=== PATIENT | male | born 1960 | race Caucasian/White ===

== ENCOUNTER 2020-02-24 09:31 | Emergency (ER) | payer MEDICAID, SELFPAY ==
[2020-02-24 09:37] VITALS: BP 140/90; PULSE 110; RESP 18; TEMP 36.3; O2SAT 95; BMI 34.9
--- NOTE | 2020-02-24 09:53 | ED_ITS ---
HPI - Skin/Abscess/Foreign Bdy General: Chief complaint: Skin/Abscess/Foreign Body Stated complaint: WOUND ON BOTTOM Time Seen by Provider: 02/24/20 09:39 History of Present Illness: HPI narrative: 59-year-old male history of perirectal abscess. Was seen at a local walk-in clinic this morning and referred to the ER. He first noticed this beginning 2 days ago. He states he has had this multiple times in the past and has had surgical drainage. Denies any fever. MD complaint: abscess/boil Onset (ago): day(s) (2) Tetanus up to date: yes Severity: moderate Quality: sharp and constant Pain Consistency: constant Relieving factors: rest Exacerbating factors: movement Associated symptoms: Deny arthralgias, chills, cough, fever(s), itching, myalgias, nausea, rigidity, short of breath or vomiting Treatments prior to arrival: none Review of Systems Const: Denies: fever(s) or chills ENMT: Denies: throat pain, ear or mastoid pain, nasal discharge or nasal congestion Card: Denies: chest pain, edema, dyspnea on exertion or orthopnea Resp: Denies: dyspnea, productive cough or non-productive cough GI: Denies: nausea or vomiting : Denies: flank pain, dysuria, urinary frequency or urinary urgency Skin/Breast: Denies: rash or pruritus Physical Exam Const: COMMON NORMALS: no acute distress GENERAL APPEARANCE: cooperative ORIENTATION/CONSCIOUSNESS: Yes awake, Yes oriented to person, Yes oriented to place and Yes oriented to time HENMT: COMMON NORMALS: normocephalic, atraumatic and hearing grossly normal bilaterally HEAD & SCALP: normocephalic and atraumatic Neck/C-Spine: COMMON NORMALS: no JVD Resp: COMMON NORMALS: normal respiratory effort, No retractions, No use of accessory muscles and clear to auscultation bilaterally AUSCULTATION: clear to auscultation bilaterally Cardio: COMMON NORMALS: no JVD, regular rate, regular rhythm and No murmurs present (Cardio) RATE: regular rate RHYTHM: regular rhythm GI: COMMON NORMALS: Soft to palpation and No hepatosplenomegaly present AUSCULTATION: Yes normoactive bowel sounds PALPATION: Yes Soft to palpation, No Tenderness to palpation present (GI), No Guarding due to palpation present (GI) and Yes No hepatosplenomegaly present OTHER: Palpable perirectal abscess at the 10 o'clock position. Incised with an 11 blade after local anesthesia with 1% lidocaine with epinephrine. Small amount of purulent drainage noted good this was cultured no significant drainage from the area. Extremity: COMMON NORMALS: normal to inspection, capillary refill normal, no clubbing, cyanosis or edema, no calf tenderness and no pedal edema Neuro: SENSORIUM/ORIENTATION: Yes oriented to person, Yes oriented to place and Yes oriented to time Procedures Abscess I/D Site: nigel-rectal Side (if applicable): left (10 to 11 o'clock position) Local Anesthetic: lidocaine 1% and with epi Amount of anesthesia used (mL): 4 Technique: incised with #11 blade Amount of fluid expressed (mL): 2 Packing used?: none Course Vital Signs: Vital signs: Vital Signs Temperature 97.3 F L 02/24/20 09:37 Pulse Rate 75 02/24/20 11:27 Respiratory Rate 14 02/24/20 11:27 Blood Pressure 157/97 02/24/20 11:27 Pulse Oximetry 98 02/24/20 11:27 MDM - Skin/Abscess/Foreign Bdy MDM Narrative: Medical decision making narrative: We will go ahead and start on Augmentin follow-up with his primary care doctor in the next 4 to 5 days. Hydrocodone given for pain follow-up in the ER if symptoms worsen. Lab Data: Attestation: I reviewed the patient's lab results. Labs: Lab Results 02/24/20 02/24/20 Range/Units 10:05 10:05 WBC 9.0 (4.0-10.0) 10^3/ uL RBC 5.62 H (4.1-5.3) 10^6/u L Hgb 16.0 (11.7-16.6) g/dL Hct 49.9 (42.0-52.0) % MCV 88.8 (80-94) fL MCH 28.5 (28.0-34.0) pg MCHC 32.1 (30.0-36.0) g/dL RDW 11.9 L (12.1-15.1) % Plt Count 257 (130-400) 10^3/c mm MPV 10.3 (7.4-10.4) fL Neut % (Auto) 82.1 % Lymph % (Auto) 9.6 % [place] % (Auto) 6.0 % Eos % (Auto) 1.1 % Baso % (Auto) 0.9 % Neut # (Auto) 7.39 (1.8-7.7) 10^3/u L Lymph # (Auto) 0.9 (0.8-4.8) 10^3/u L [place] # (Auto) 0.5 (0.2-0.9) 10^3/u L Eos # (Auto) 0.1 (0.0-0.8) 10^3/u L Baso # (Auto) 0.1 (0.0-0.1) 10^3/u L Nucleated RBC % (a uto) 0 % Nucleated RBCs # 0.0 /100WBC Sodium 135 L (136-145) mmol/L Potassium 4.3 (3.5-5.1) mmol/L Chloride 100 (98-107) mmol/L Carbon Dioxide 24 (22-29) mmol/L Anion Gap 15.3 (5-19) BUN 10 (6-20) mg/dL Creatinine 0.8 (0.7-1.2) mg/dL GFR Calculation 99.6 (90-130) mL/min Glucose 226 H (65-115) mg/dL Calculated Osmolal ity 286 (285-295) mOsm/k g Calcium 9.1 (8.5-10.5) mg/dL Discharge Plan Discharge Patient Disposition: Home Clinical Impression: Abscess, perirectal Condition: Stable Prescriptions: New Augmentin 875-125 mg tablet 1 tab PO BID 10 Days Qty: 20 RF: 0 hydrocodone-acetaminophen 5-325 mg tablet 1 tab PO Q6H PRN (Reason: pain) Qty: 14 RF: 0 No Action cetirizine 10 mg tablet 10 mg PO DAILY PRN (Reason: Allergy Symptoms) RF: 0 pantoprazole 40 mg tablet,delayed release (DR/EC) 40 mg PO DAILY RF: 0 montelukast 10 mg tablet 10 mg PO DAILY RF: 0 ProAir HFA 90 mcg/actuation HFA aerosol inhaler 1 puff INHALATION QID PRN (Reason: Shortness Of Breath) RF: 0 metformin 500 mg tablet extended release 24 hr 500 mg PO DAILY RF: 0 Discharge Orders: Discharge Order (Routine); Ordered 02/24/20 Ordered By: Michael Benitez Discharge Diet: Usual diet Discharge Activity: Increase activity as tolerated Activity Restrictions/Additional Instructions: Follow-up with your primary care doctor within the next week. If symptoms worsen recheck either in the clinic or in the emergency room. Discharge Date/Time: 02/24/20 11:39 Coding Level of Care Code ED Professor In Family Studies for Bhaskar Sterling
[2020-02-24 10:17] LABS: Basophils # 0.1 10^3/uL (0.0-0.1); Basophils % 0.9 %; Eosinophils # 0.1 10^3/uL (0.0-0.8); Eosinophils % 1.1 %; Hematocrit 49.9 % (42.0-52.0); Lymphocytes # 0.9 10^3/uL (0.8-4.8); Lymphocytes % 9.6 %; Mean Corpuscular HGB Conc 32.1 g/dL (30.0-36.0); Mean Corpuscular Hemoglobin 28.5 pg (28.0-34.0); Mean Corpuscular Volume 88.8 fL (80-94); Mean Platelet Volume 10.3 fL (7.4-10.4); Monocytes # 0.5 10^3/uL (0.2-0.9); Neutrophils # 7.39 10^3/uL (1.8-7.7); Neutrophils % 82.1 %; Nucleated Red Blood Cells % 0 %; Platelet Count 257 10^3/cmm (130-400); Red Blood Count 5.62 10^6/uL (4.1-5.3); Red Cell Distribution Width 11.9 % (12.1-15.1)
[2020-02-24 10:34] LABS: Anion Gap 15.3 (5-19); Blood Urea Nitrogen 10 mg/dL (6-20); Calcium 9.1 mg/dL (8.5-10.5); Carbon Dioxide 24 mmol/L (22-29); Chloride 100 mmol/L (98-107); Glomerular Filtration Rate 99.6 mL/min (90-130); Glucose 226 mg/dL (65-115); Osmolality Calculated 286 mOsm/kg (285-295); Potassium 4.3 mmol/L (3.5-5.1); Sodium 135 mmol/L (136-145)
[2020-02-24 11:27] VITALS: BP 157/97; PULSE 75; RESP 14; O2SAT 98
--- NOTE | 2020-02-26 10:38 | PM.HP ---
Providers/Chief Complaint Admitting Physician: General Surgery Franco Pineda MD Primary Care Provider: Lucas Cannon MD Chief Complaint: Perirectal lesion/abscess. History of Present Illness Long Ugalde is a 59 year old male who says he started having pain in the perirectal region about 4 days ago. He seems to be a little bit mentally challenged, and cannot remember full details of his medical history. He describes a perirectal abscess that had to be drained in the same area many years ago. He says that he has had some recurring episodes of swelling and discomfort in the area but it has always gotten better by itself since originally having to be drained. 2 days ago the pain was bad enough that he was seen in urgent care and was directed to the emergency department. An attempted incision and drainage procedure was done but apparently he was told they could not get anything out of it. A culture was sent but only showed some coagulase-negative Staphylococcus, possibly consistent with a skin contaminant. He has been on Augmentin since. The area continue to worsen. He denies fevers and chills. He has not had any recent drainage from the area. Review of Systems General: Reports: 10 or more systems reviewed and unremarkable except in HPI and below Const: Denies: fever(s) or chills GI: Reports: other (Anorectal pain/swelling) Medications/Allergies Home Medications Medication Instructions Recorded Confirmed Last Taken Type albuterol sulfate [ProAir HFA] 1 puff INHALATION QID PRN 02/24/20 02/24/20 02/23/20 History amoxicillin-pot clavulanate 1 tab PO BID 10 Days #20 tab 02/24/20 Unknown Rx [Augmentin] cetirizine 10 mg PO DAILY PRN 02/24/20 02/24/20 Unknown History hydrocodone-acetaminophen 1 tab PO Q6H PRN #14 tab 02/24/20 Unknown Rx metformin 500 mg PO DAILY 02/24/20 02/24/20 02/23/20 History montelukast 10 mg PO DAILY 02/24/20 02/24/20 02/23/20 History pantoprazole 40 mg PO DAILY 02/24/20 02/24/20 02/23/20 History Allergies Allergy/AdvReac Type Severity Reaction Status Date / Time No Known Allergies Allergy Verified 02/24/20 09:42 PFSH Acute PFSH: Medical History (Updated 02/26/20 @ 10:48 by Franco Pineda MD) Asthma Diabetes mellitus Diverticulitis Diverticulosis Peptic ulcer disease Surgical History (Updated 02/26/20 @ 11:01 by Franco Pineda MD) History of drainage of abscess Left chest thoracotomy scar Patient not sure what this was from--says it was done just prior to his procedure for his perforated ulcer at [facility] Perforated ulcer Social History (Updated 02/26/20 @ 10:48 by Franco Pineda MD) Smoking and tobacco status: never smoked Alcohol intake: never Current occupation: Janitorial/maintenance Vitals/I&O/Wt Last Vital Signs Temp 97.3 F L 02/24/20 09:37 Pulse 75 02/24/20 11:27 Resp 14 02/24/20 11:27 BP 157/97 02/24/20 11:27 Pulse Ox 98 02/24/20 11:27 Physical Exam Narrative: EXAM NARRATIVE: The patient was examined in the outpatient surgery department. He does not appear to be in any acute distress. The pupils seem equal. No carotid bruits are heard. The lungs are clear. The heart is regular but he is borderline tachycardic. The abdomen is moderately to severely obese. He has a well-healed midline scar from the xiphoid all the way down past the umbilicus. He also has a left thoracotomy scar posterolaterally. His abdomen is nontender. The perirectal region reveals an vertically oriented oval shaped indurated area in the 11 o'clock position on the left side with him standing upright. It has almost a fibrous appearance at the skin surface in areas. There is a small wound in the middle without any ongoing drainage. The entire area seems to be quite sensitive. The extremities reveal no significant edema. Neurologically the patient appears to be grossly intact. Data : 02/24/20 10:05 02/24/20 10:05 Other Labs: Laboratory studies repeated at an outside facility this morning showed a white blood cell count of 10.0, hemoglobin 16.0, platelet count of 246,000. A BMP was completely within normal limits with the exception of the glucose which was elevated at 217. Micro: Microbiology 02/24/20 11:20 Gram Stain - Final Buttock Wound Culture - Preliminary Coagulase negativ staphylococc A&P Assessment and plan (1) Abscess, perirectal: The patient states this was drained once in the past, but has recurred infrequently since and has always gotten better by itself. The area seems to be quite firm. It does not have the classic appearance of a perirectal abscess. I suggested that we go to the operating room for attempted drainage of any underlying fluid collection. If one cannot be found then a biopsy of the tissue will be performed. Procedural details and risks including bleeding, further infection, etc. were all gone over. The patient seems to understand and is agreeable to proceeding. Rapid COVID-19 test this morning was negative. Status: Acute Attestations Medical Necessity Statement*: The patient is anticipated to be able to be discharged immediately following the procedure. For that reason he will be kept in outpatient status. Coding Level of Care Code Acute Diamond Blender for Bhaskar Sterling Diagnoses Abscess, perirectal K61.1
--- NOTE | 2020-02-26 11:49 | PM.OP ---
Operative Report Date of procedure: February 26, 2020 Pre-op Diagnosis: perirectal abscess Post-op diagnosis: same Procedure Done: Incision and drainage of perirectal abscess. Specimens removed/disposition: Aerobic and anaerobic cultures. Surgeon: Franco Pineda Anesthesia: MAC Estimated blood loss (mL): 5 Complications: None. Condition: stable Disposition: same day Procedure: The patient was brought to the operating room and was placed in a left lateral decubitus position on the operating room table. A monitored anesthetic was induced. The perirectal region was prepped and draped in a sterile fashion. A combination of 1% lidocaine with 1 100,000 parts epinephrine and 0.5% bupivacaine was used for local anesthesia throughout the procedure. The small vertical wound at the apex of the indurated area in the left posterior region was reopened using a scalpel. Not too far from the surface, a sizable pocket of somewhat purple purulent material was encountered and was completely drained out using suction. Aerobic and anaerobic cultures were taken in the process. The wound was extensively irrigated with saline and was then packed with half-inch Nu Gauze. An absorptive dressing was applied and the patient was taken to the recovery area in stable condition postoperatively.
== END 2020-02-24 11:39 | disposition home or self-care (01) ==
PROVIDERS: Emergency Provider Family Medicine
DX: K61.1 Rectal abscess (principal)
CPT/HCPCS: 12345; 36415; 46040; 80048; 85025; 87070; 87205; 96372; 99282

== ENCOUNTER 2020-02-26 10:32 | Day surgery (SDC) | payer MEDICAID, SELFPAY ==
[2020-02-26 10:49] VITALS: BMI 34.7
--- NOTE | 2020-02-26 11:01 | P.ANESASSM_ITS ---
Pre-Anesthetic Assessment Pre-Anesthetic Assessment: Height/Weight: Height 1.73 m Preop Diagnosis: perirectal abscess Proposed Procedure: Operation Date: 02/26/20 11:40 Proposed Procedures p Perirectal Abscess(Not Applicable) - Franco Pineda MD Familial anesthetic complications: none Was Beta Corinne taken within 24 hours: N/A Last intake: NPO > 8 hrs per patient Social: Social History: No alcohol and No tobacco Exam: Pre-Anes Outpt Exam: alert, oriented x 3, clear to auscultation antonio aterally and regular rate & rhythm Airway: Cervical ROM: WNL MP: 4 Dentition: Other (missing tooth) Pulmonary: Comments: patient states he has bad diaphragm and gets winded since an accident where he fell from his truck and injured it GI: GI: GERD Metabolic: Metabolic: DM and Morbid obesity Anesthetic Plan: ASA status: 2 Anesthesia: MAC Risk of > 500 ml blood loss (7ml/kg in children): No Other Pertinent Information: Patient is very poor historian PFSH Anesthesia PFSH: Medical History (Updated 02/26/20 @ 10:48 by Franco Pineda MD) Asthma Diabetes mellitus Diverticulitis Diverticulosis Peptic ulcer disease Surgical History (Updated 02/26/20 @ 11:01 by Franco Pineda MD) History of drainage of abscess Left chest thoracotomy scar Patient not sure what this was from--says it was done just prior to his procedure for his perforated ulcer at [facility] Perforated ulcer Social History (Updated 02/26/20 @ 10:48 by Franco Pineda MD) Smoking and tobacco status: never smoked Alcohol intake: never Current occupation: Janitorial/maintenance Data Anesthesia Cardiac Studies: No Data to Display
[2020-02-26 11:07] VITALS: BP 135/117; PULSE 123; RESP 18; TEMP 36.1; O2SAT 94
[2020-02-26] MEDS: sodium chloride 0.9% 1,000 ML 30 ML IV (11:15)
[2020-02-26 11:16] LABS: Glucose Point of Care 210 mg/dL (70-110)
[2020-02-26] MEDS: metroNIDAZOLE IV 500 MG/100 ML PREMIX 100 MG IV (11:32)
[2020-02-26 12:08] VITALS: BP 96/55; PULSE 105; RESP 18; TEMP 36.2; O2SAT 96
--- NOTE | 2020-02-26 12:50 | ANE.PACU2 ---
Inpatient post-anesthesia follow up: Airway intact: Yes Vital signs: Temperature 97.2 F Pulse Rate 106 Respiratory Rate 18 Blood Pressure 113/72 Pulse Oximetry 98 Oxygen Delivery Me thod Room Air Oxygen Flow Rate Fraction of Inspir ed Oxygen Hydration adequate: Yes Nausea and vomiting: No Pain level: 2 Mental status: Baseline
[2020-02-26 12:52] VITALS: BP 113/72; PULSE 106; RESP 18; O2SAT 98
== END 2020-02-26 12:59 | disposition home or self-care (01) ==
PROVIDERS: PCP Family Medicine; Visit Provider Surgery
PROC: (CPT 46040; principal; 2020-02-26 11:30)
DX: K61.1 Rectal abscess (principal); E11.9 Type 2 diabetes mellitus without complications; E66.01 Morbid (severe) obesity due to excess calories; Z68.34 Body mass index [BMI] 34.0-34.9, adult; Z87.11 Personal history of peptic ulcer disease
CPT/HCPCS: 46040; 36416; 82962; 87070; 87075; 87077; 87186; 87205; 96365; J0690; J2704; J3010; J3490; J7030; S0030

== ENCOUNTER → 2023-04-18 14:12 | Outpatient (BNVA) | payer MEDICAID, SELFPAY | PROVIDERS: PCP Family Medicine; Visit Provider Student in an Organized Health Care Education/Training Program | DX: S62.307A Unspecified fracture of fifth metacarpal bone, left hand, initial encounter for closed fracture; W01.0XXA Fall on same level from slipping, tripping and stumbling without subsequent striking against object, initial encounter | CPT/HCPCS: 73130; 99204 ==

== ENCOUNTER 2023-04-20 05:52 | Day surgery (SDC) | payer MEDICAID, SELFPAY ==
[2023-04-20] VITALS (7 sets, daily range): BP systolic 96–126; BP diastolic 71–98; PULSE 79–99; RESP 10–18; TEMP 36.1–36.2; O2SAT 92–98; BMI 34.7
--- NOTE | 2023-04-20 | XR_ITS ---
WS: [id number] Exam: XR hand LT 2V [id number] Date/Time of Exam: 04/20/2023 12:00 AM Reason For Exam: OR pic , fifth metacarpal orif Intraoperative images of the LEFT hand demonstrate internal fixation with an intramedullary screw inv olving a fracture of the distal fifth metacarpal. The fracture is stabilized in satisfactory position for healing.
[2023-04-20] MEDS: acetaminophen 1,000 MG/100 ML PIGGYBACK 400 MG IV (06:13)
[2023-04-20] MEDS: sodium chloride 0.9% 1,000 ML 30 ML IV (06:13)
[2023-04-20] MEDS: ketorolac 30 mg/mL INJ IVP (06:13)
[2023-04-20 06:30] LABS: Glucose Point of Care 247 mg/dL (70-110)
--- NOTE | 2023-04-20 06:41 | P.ANESASSM_ITS ---
Pre-Anesthetic Assessment Height/Weight: Height 1.73 m Weight 103.419 kg Temp Pulse Resp BP Pulse Ox O2 Del Method 97.0 F L 99 18 126/98 95 Room Air 04/20/23 06:25 04/20/23 06:25 04/20/23 06:25 04/20/23 06:25 04/20/23 06:25 04/20/23 06:25 Preop Diagnosis: Left 5th Metacarpal Fx Operation Date: 04/20/23 07:00 Proposed Procedures p Left Fifth ORIF Metacarpal(Left) - Art Shannon, DO Familial anesthetic complications: None Was Beta Corinne taken within 24 hours: N/A Was Clonidine taken within 24 hours: N/A Last intake: Intake Last Liquid Date 04/19/23 Last Liquid Time 20:00 Last Solid Date 04/19/23 Last Solid Time 20:00 Social No alcohol and No tobacco Exam alert, oriented x 3, clear to auscultation bilaterally and regular rate & rhythm Airway Mallampati: Class IV Dentition: other (missing teeth) Comments: Comments: small mouth opening, large neck, lilly GI Gastroesophageal Reflux Disease Metabolic Diabetes Mellitus Anesthetic Plan ASA status: 2 Anesthesia: General Risk of > 500 ml blood loss (7ml/kg in children): No Medications/Allergies Home Medications Medication Instructions Recorded Confirmed Last Taken Type albuterol sulfate 90 mcg/actuation 1 puff inhalation QID PRN 02/24/20 04/19/23 04/20/23 History aerosol inhaler (ProAir HFA) Shortness Of Breath cetirizine 10 mg tablet 10 mg PO DAILY PRN Allergy Symptoms 02/24/20 04/19/23 04/18/23 History hydrocodone 5 mg-acetaminophen 325 1 tab PO Q6H PRN pain #14 tabs 02/24/20 04/19/23 04/18/23 Rx mg tablet metformin 500 mg tablet,extended 500 mg PO DAILY 02/24/20 04/20/23 04/19/23 History release 24 hr montelukast 10 mg tablet 10 mg PO DAILY 02/24/20 04/20/23 04/18/23 History pantoprazole 40 mg tablet,delayed 40 mg PO DAILY 02/24/20 04/20/23 04/18/23 History release myra root extract 50 mg tablet 50 mg PO DAILY 04/19/23 04/20/23 Unknown History Allergies Allergy/AdvReac Type Severity Reaction Status Date / Time No Known Allergies Allergy Verified 04/20/23 06:06 Current Medications Generic Name Dose Route Start Last Admin Trade Name Denis PRN Reason Stop Dose Admin Sodium Chloride 1,000 mls @ 30 mls/hr 04/20/23 06:00 04/20/23 06:13 Sodium Chloride 0.9% IV 04/21/23 05:59 30 mls/hr .Q24H BOB Administration PFSH Anesthesia Medical History Asthma Diabetes mellitus Diverticulitis Diverticulosis Peptic ulcer disease Surgical History History of drainage of abscess Left chest thoracotomy scar Patient not sure what this was from--says it was done just prior to his procedure for his perforated ulcer at [facility] Perforated ulcer Social History Smoking and tobacco/nicotine status: never used tobacco/nicotine Alcohol intake: never Current occupation: Janitorial/maintenance Data Anesthesia Cardiac Studies: No Data to Display
--- NOTE | 2023-04-20 06:51 | W.PM.OPSUD ---
Surgery/Procedure H&P Update DATE OF PROCEDURE: April 20, 2023 DATE H&P PERFORMED: 04/18/23 H&P UPDATE INFORMATION: I have reviewed H&P completed within last 30 days, I have examined patient prior to procedure and No changes to prior documentation PREOP DIAGNOSIS: Left 5th Metacarpal Fx PRIMARY INDICATION FOR PROCEDURE: left 5th metacarpal fx PLANNED PROCEDURE: Operation Date: 04/20/23 07:00 Proposed Procedures p Left Fifth ORIF Metacarpal(Left) - Art Sherwood DO
[2023-04-20] MEDS: ceFAZolin 2,000 MG in sodium chloride 0.9% (plus) 50 ML 100 MG IV (07:13)
--- NOTE | 2023-04-20 07:59 | W.PM.BPON ---
Date of Procedure: [04/20/2023] Surgeon: [Art Sherwood DO] Membership Solicitor(s): [None] Procedure(s) performed: [Left fifth metacarpal fracture open reduction internal fixation] Findings of the procedure(s): [Patient had displaced left fifth metacarpal fracture, procedure went as planned without complications] Estimated blood loss: [2 cc] Specimen(s) removed: [None] Post-operative diagnosis: [Left fifth metacarpal fracture displaced]
[2023-04-20] MEDS: ROPivacaine 0.5% SDV 30 mL 150 MG INJECTION (08:00)
--- NOTE | 2023-04-20 08:02 | PM.OP ---
Operative Report Date of procedure: April 20, 2023 Surgeon: Art Sherwood DO Procedure: Procedure: Preop Diagnosis ? Displaced left fifth metacarpal fracture? Post-op diagnosis: Same Post-op findings: See procedure note Procedure done: Left fifth metacarpal shaft open reduction internal fixation with intramedullary headless beveled screw Implants: Arthrex 3.5 mm cannulated beveled headless screw 38mm Specimens removed/disposition: None Estimated blood loss (mL): 2cc Tourniquet time none IV fluids: See anesthesia record Complications: None Findings: See op note Brief History: pt was seen in my office? and sustained a left fifth metacarpal fracture seen by his primary care physician and referred to my office for follow-up given the displacement. Patient was found to have persistent shortening as well as malrotation deformity noted.? Given length of unstable fracture with interval displacement and malrotation noted would recommend surgical intervention we talked about this in detail..?? I detailed discussion with him in the office about these findings and recommendations of nonoperative versus operative intervention.? ? Through shared decision making patient elect to proceed.? Detail the risk benefits complications alternatives to surgery.? Risks include but are not limited to make it better or make it worse malunion nonunion loss of function of the hand, injury to extensor tendon mechanism, injury to nerves or vessels, infection.? Understanding these risks he elects to proceed with surgical intervention.? Consent was obtained in office. Procedure: Patient seen the preoperative holding area.? Consent was finalized and reviewed with patient as well as family in preop holding area confirming correct patient correct site of surgery and correct surgery procedure.? Patient was then evaluated by the anesthesia department.? Taken to the OR suite and placed on the OR table with a hand table to the left upper extremity all bony prominences well-padded patient was secured to the bed.? Patient then underwent anesthesia per the anesthesia department.? Nonsterile tourniquet applied to the left upper extremity.? Left upper extremity was then prepped and draped in standard orthopedic fashion.? Final timeout performed. Tourniquet was not insufflated during the case mini C-arm was brought in to evaluate the fracture confirming left fifth metacarpal shaft fracture.? Fracture was able to be reduced in rotationHeld by my property management assistant and this was visualized on mini C arm once I was satisfied with my reduction I then proceeded with placement of the Arthrex cannulated screw. Reduction this was then held into place and I proceeded with Arthrex's cannulated 3.5 mm beveled screws which would add no compression but act as a internal fixation. ?This point I inserted my guidewire from a headless? screw at the dorsal third of the metacarpal head to be an appropriate line with the shaft.? Once this was advanced and confirmed appropriate starting position orthogonal views with mini C arm it was then advanced a reduction maneuver was made closed at the fracture site and the guidewire was then advanced past the fracture into the proximal fragment and then secured into the hamate across the fifth CMC joint.? Once we confirmed appropriate reduction as well as guidepin? being intramedullary we then used the cannulated drill for the 3.5 screw which was then advanced drilled just past the fracture site.? Next I selected a appropriate length screw 3.5 Arthrex headless compression fully threaded screw this was then held up to the metacarpal to determine that it would be appropriate length with mini C arm.? Once this was confirmed this was the appropriate length I then utilized hand screwdriver and advance this which had excellent fracture site compression as well as maintenance of reduction.? Once this was advanced to appropriate depth being subchondral.? The guidepin was then removed.? Final x-rays AP oblique and lateral confirmed stable reduction and fixation with headless beveled screw.? I then took the hand through range of motion identify patient's tenodesis and finger cascade And good alignment.? Wound bed was then thoroughly irrigated.? Interrupted nylon suture for skin.? Local injection of lidocaine and ropivacaine was then injected around the fracture site as well as incision.? Patient's fingers were warm and well-perfused after tourniquet was let down.? Dressing applied of 4 x 4's Curlex and a ulnar gutter splint with Sarbjit wrap.? Patient was then awakened from anesthesia and taken to PACU in stable condition. Disposition: Patient be nonweightbearing left upper extremity maintain splint till follow-up.? ? Patient will be given appropriate discharge instruction as well as pain medication.? Follow-up in 2 weeks in my office.
[2023-04-20] MEDS: BUPivacaine 0.5% INJ 30 mL INJECTION (08:12)
[2023-04-20] MEDS: HYDROcodone-acetaminophen 5-325 mg Tablet 1 TAB PO (08:39)
--- NOTE | 2023-04-20 09:00 | ANE.PACU2 ---
Inpatient post-anesthesia follow up: Airway intact: Yes Vital signs: Temperature 97.0 F Pulse Rate 85 Respiratory Rate 18 Blood Pressure 104/72 Pulse Oximetry 98 Oxygen Delivery Me thod Room Air Oxygen Flow Rate 6 Fraction of Inspir ed Oxygen Hydration adequate: Yes Nausea and vomiting: No Pain level: 1 Mental status: Baseline
== END 2023-04-20 09:00 | disposition home or self-care (01) ==
PROVIDERS: PCP Family Medicine; Visit Provider Student in an Organized Health Care Education/Training Program
PROC: (CPT 26615; principal; 2023-04-20 07:00)
DX: S62.307A Unspecified fracture of fifth metacarpal bone, left hand, initial encounter for closed fracture (principal); W01.0XXA Fall on same level from slipping, tripping and stumbling without subsequent striking against object, initial encounter; K21.9 Gastro-esophageal reflux disease without esophagitis; E11.9 Type 2 diabetes mellitus without complications; Z79.84 Long term (current) use of oral hypoglycemic drugs; Z87.11 Personal history of peptic ulcer disease
CPT/HCPCS: 26615; 36416; 73120; 76000; 82962; C1713; J0131; J0690; J1100; J1885; J2371; J2405; J2704; J2795; J3010; J3490; J7030

== ENCOUNTER 2023-05-09 06:00 | Outpatient (CLI) | payer MEDICAID, SELFPAY | END 2023-05-09 06:01 | disposition home or self-care (01) | LOC: SOT 05-12 11:47 | PROVIDERS: PCP Family Medicine; Visit Provider Physician Assistant | DX: Z46.89 Encounter for fitting and adjustment of other specified devices (principal); S62.307D Unspecified fracture of fifth metacarpal bone, left hand, subsequent encounter for fracture with routine healing; X58.XXXD Exposure to other specified factors, subsequent encounter | CPT/HCPCS: 97760; 99024; L3923 ==

== ENCOUNTER → 2023-05-09 10:04 | Outpatient (BNVA) | payer MEDICAID, SELFPAY | PROVIDERS: PCP Family Medicine; Visit Provider Physician Assistant | DX: Z98.890 Other specified postprocedural states; S62.307D Unspecified fracture of fifth metacarpal bone, left hand, subsequent encounter for fracture with routine healing; X58.XXXD Exposure to other specified factors, subsequent encounter | CPT/HCPCS: 73130 ==

== ENCOUNTER → 2023-06-15 10:05 | Outpatient (BNVA) | payer MEDICAID, SELFPAY | PROVIDERS: PCP Family Medicine; Visit Provider Physician Assistant | DX: Z98.890 Other specified postprocedural states (principal) | CPT/HCPCS: 73130; 99213 ==

== ENCOUNTER → 2023-09-12 09:21 | Outpatient (BNVA) | payer MEDICAID, SELFPAY | PROVIDERS: PCP Family Medicine; Visit Provider Student in an Organized Health Care Education/Training Program | DX: Z98.890 Other specified postprocedural states (principal); S62.307D Unspecified fracture of fifth metacarpal bone, left hand, subsequent encounter for fracture with routine healing; X58.XXXD Exposure to other specified factors, subsequent encounter | CPT/HCPCS: 73130; 99213 ==

== ENCOUNTER 2025-02-25 11:53 | Outpatient (CLI) | payer MEDICAID, SELFPAY | END 2025-02-25 11:54 | disposition home or self-care (01) | LOC: SLEEP 11:54 | PROVIDERS: PCP Family Medicine; Referring Provider Family Medicine; Visit Provider Internal Medicine Pulmonary Disease | DX: G47.33 Obstructive sleep apnea (adult) (pediatric) (principal); G47.36 Sleep related hypoventilation in conditions classified elsewhere | CPT/HCPCS: G0399 ==

== ENCOUNTER 2025-05-21 20:10 | Outpatient (CLI) | payer MEDICAID, SELFPAY | END 2025-05-21 20:11 | disposition home or self-care (01) | LOC: SLEEP 20:11 | PROVIDERS: PCP Family Medicine; Referring Provider Family Medicine; Visit Provider Internal Medicine Pulmonary Disease | DX: G47.33 Obstructive sleep apnea (adult) (pediatric) (principal); G47.61 Periodic limb movement disorder | CPT/HCPCS: 95811 ==